=== PATIENT | male | born 1985 | race Caucasian/White ===

== ENCOUNTER → 2021-07-22 15:50 | Outpatient (CLI) | payer BC, SELFPAY | PROVIDERS: PCP Family Medicine; Visit Provider Nurse Practitioner | DX: U07.1 COVID-19 (principal) | CPT/HCPCS: C9803; U0003; U0005 ==

== ENCOUNTER → 2023-09-28 14:08 | Outpatient (CLI) | payer BC, SELFPAY | LOC: LAB 14:10 | PROVIDERS: PCP Family Medicine; Visit Provider Obstetrics & Gynecology | DX: Z01.84 Encounter for antibody response examination (principal) | CPT/HCPCS: 36415; 86850 ==